=== PATIENT | female | born 1955 | race Caucasian/White ===

== ENCOUNTER 2021-10-18 13:53 | Outpatient (CLI) | payer MEDICARE, MEDICAID, SELFPAY ==
--- NOTE | ~2021-10-18 | DEXA_ITS ---
Bone Density Report Name: LORI RAMON Age: 66 Sex: Female Ethnicity: White Date of : 1955 Indication: postmenopausal; screening for osteoporosis; prior fracture; cancer; asthma or emphysema; Referring Provider: Arnaldo Gutierrez Study: Bone densitometry was performed. Exam Date: October 18, 2021 Accession number: [id number] Bone Density: Region BMD T-score Z-score Classification AP Spine(L2, L3, L4) 1.331 2.3 4.3 Normal Femoral Neck (Left) 0.913 0.6 2.2 Normal Total Hip (Left) 1.091 1.2 2.6 Normal Femoral Neck (Right) 1.007 1.4 3.1 Normal Total Hip (Right) 1.068 1.0 2.4 Normal Femoral Neck Mean 0.960 1.0 2.7 Normal Total Hip Mean 1.079 1.1 2.5 Normal World Health Organization criteria for BMD impression classify patients as: Normal (T-score at or above -1.0), Osteopenia (T-score between -1.0 and -2.5), or Osteoporosis (T-score at or below -2.5). 10-year Fracture Risk: FRAX not reported because: All T-scores for Spine Total, Hip Total, Femoral Neck at or above -1.0 Clinical Information Provided by Patient: Has had a low trauma fracture Has used the following medications: Vitamin D Has the following medical conditions: Asthma or Emphysema, Cancer Patient maximum height was 63 Menopause Age: 49 No regular weight bearing exercise Does not regularly consume dairy products Onset of menses at age 11 Number of children 4 Impression: The patient has normal bone mass. The patient has risk factors, including: previous fracture. Discussion: LOW RISK OF FRACTURE; BONE DENSITY IS WELL ABOVE THE MINIMUM DESIRABLE LEVEL AND ABOVE AVERAGE FOR AGE AND SEX AT ALL SKELETAL SITES TESTED. This person's bone density is above expected limits for age and sex. This is rarely clinically significant, but should be pursued if there are significant musculoskeletal complaints. The patient should follow a healthful lifestyle (good nutrition with adequate calcium and vitamin D, and appropriate weight-bearing exercise). Follow-Up: Consider repeating this study in 5 years or sooner if there is some new clinical indication. Reported by: Dr. Peyman Britton on 10/18/2021 2:52:00 PM. Reviewed, dictated and finalized at location AChris GAINES
--- NOTE | ~2021-10-18 | MM_ITS ---
EXAMINATION: MM screening melony BI w chris HISTORY: Screening mammogram TECHNIQUE: Craniocaudal and mediolateral oblique 3-D tomosynthesis images were obtained and synthetic 2-D images were generated. CAD analysis was submitted and interpreted. COMPARISON: 04/13/2017, 03/2016 bilateral screening mammogram examinations BREAST PARENCHYMAL COMPOSITION: There are scattered areas of fibroglandular density. FINDINGS: Mildly nodular fibroglandular stroma is noted. The largest nodular area is an approximately 5 mm opacity in the inner aspect of the mid to posterior lower inner right breast, not significantly changed since 04/13/2017. There is a 5 mm irregular opacity at mid depth in the outer mid left breast (craniocaudal Tomosynthes is image 19/53; MLO Tomosynthesis image 20/67). Diagnostic left mammogram and left breast ultrasound examination are recommended. Otherwise no suspicious mass, architectural distortion, malignant calcification, skin thickening or r etraction of either breast is noted. IMPRESSION: 1. New 5 mm opacity at mid depth in the outer mid left breast 2. Diagnostic left mammogram and left breast ultrasound examination are recommended BI-RADS Category 0: Incomplete: Needs additional imaging evaluation. Reviewed, dictated and finalized at location A. IMPRESSION: 1. New 5 mm opacity at mid depth in the outer mid left breast 2. Diagnostic left mammogram and left breast ultrasound examination are recomme nded BI-RADS Category 0: Incomplete: Needs additional imaging evaluation.
== END 2021-10-18 13:54 | disposition home or self-care (01) ==
PROVIDERS: PCP Family Medicine; Visit Provider Family Medicine
DX: Z12.31 Encounter for screening mammogram for malignant neoplasm of breast (principal); Z78.0 Asymptomatic menopausal state; Z13.820 Encounter for screening for osteoporosis
CPT/HCPCS: 77063; 77067; 77080

== ENCOUNTER 2021-10-25 08:43 | Outpatient (CLI) | payer MEDICARE, MEDICAID, SELFPAY ==
--- NOTE | ~2021-10-25 | MMUS_ITS ---
EXAMINATION: MM diagnostic melony LT w chris, US breast LT limited HISTORY: Follow-up left breast mass TECHNIQUE: Additional 3-D tomosynthesis images of the left breast were performed and synthetic 2-D im ages were generated. CAD analysis was submitted and interpreted. High resolution Limited left breast ultrasound was performed. COMPARISON: 04/27/2013 BREAST PARENCHYMAL COMPOSITION: Breast composed of scattered areas of fibroglandular density FINDINGS: MAMMOGRAPHIC FINDINGS: There is a persistent mass in the upper outer quadrant of the left breast, middle third, measuring 5- 6 mm. There are multiple left axillary lymph nodes which appear normal. There are benign left breast calcifications. ULTRASOUND: Limited left breast ultrasound: There are mildly prominent ducts at 12 and 2:00. At 2:00, 12 cm from the nipple, there is an irregular shaped partially cystic mass measuring 7 x 5 x 5 mm. No internal va scularity. No significant posterior features. At 2:00, 5 cm from the nipple there is an irregular sha ped hypoechoic mass measuring 6 mm maximum dimension without internal vascularity or posterior featur es. At 3:00, 12 cm from the nipple, there is a cluster of small cysts measuring up to 4 mm. IMPRESSION: 1. Hypoechoic masses of the left breast at 2:00, 12 cm from the nipple and 2:00, 5 cm from the nipple . 2. Ultrasound-guided left breast biopsies recommended. BI-RADS category 4, suspicious findings. Reviewed, dictated and finalized at location A. IMPRESSION: 1. Hypoechoic masses of the left breast at 2:00, 12 cm from the nipple and 2:00 , 5 cm from the nipple. 2. Ultrasound-guided left breast biopsies recommended. BI-RADS category 4, suspicious findings.
== END 2021-10-25 08:44 | disposition home or self-care (01) ==
LOC: CHSIMG 08:46
PROVIDERS: PCP Family Medicine; Visit Provider Family Medicine
DX: R92.8 Other abnormal and inconclusive findings on diagnostic imaging of breast (principal)
CPT/HCPCS: 76642; 77061; 77065; G0279

== ENCOUNTER 2021-11-04 09:03 | Outpatient (CLI) | payer MEDICARE, MEDICAID, SELFPAY ==
--- NOTE | ~2021-11-04 | US_ITS ---
Consultation US DATE: 11/04/2021 10:44 INDICATION: Left breast masses TECHNIQUE: Real-time imaging was repeated at the area of previously mentioned hypoechoic masses 2:00 12 cm from the nipple and 2:00 5 cm from the nipple. COMPARISON: 10/25/2021 Limited left breast ultrasound FINDINGS: The previously reported lesion at 2:00 12 cm from the nipple is no longer identified. 2:00 5 cm from nipple: Parallel circumscribed hypoechoic lesion measuring approximately 3 x 5.2 mm co mpared to 3 x 6 mm on 10/25/2021. There is no posterior shadowing. 3. month targeted left breast ultrasound follow-up examination at 2:00 5 cm from nipple is recommende d. IMPRESSION: BI-RADS Category 3: Probably benign mass at 2:00 5 cm from nipple Recommendation: 3 month left breast targeted ultrasound follow-up at 2:00 Dr. Britton telephoned the report and 3 month follow up ultrasound follow up recommendation on 11/06/20[address] Gutierrez's nurse Grigsby's voicemail. Reviewed, dictated and finalized at Location A. Reviewed, dictated and finalized at location A. IMPRESSION: BI-RADS Category 3: Probably benign mass at 2:00 5 cm from nipple Recommendation: 3 month left breast targeted ultrasound follow-up at 2:00 Dr. Britton telephoned the report and 3 month follow up ultrasound follow up recom mendation on 11/06/2021 at [address] Gutierrez's nurse Grigsby's voicem ail.
== END 2021-11-04 09:04 | disposition home or self-care (01) ==
PROVIDERS: PCP Family Medicine; Visit Provider Family Medicine
DX: N63.20 Unspecified lump in the left breast, unspecified quadrant (principal); R92.8 Other abnormal and inconclusive findings on diagnostic imaging of breast
CPT/HCPCS: 99199

== ENCOUNTER 2022-02-06 08:02 | Outpatient (CLI) | payer MEDICARE, MEDICAID, SELFPAY ==
--- NOTE | ~2022-02-06 | US_ITS ---
US breast LT limited 02/06/2022 08:45 Indication: Follow-up left breast mass Procedure: High-resolution Limited ultrasound of the left breast Comparison: Comparison to multiple prior studies sequentially, with oldest reviewed study dated 11/2021. Findings: At 2:00, 5 cm from the nipple, there is an oval, parallel orientation, nonshadowing mass me asuring 5 x 4 x 3 mm without significant change from prior examination allowing for differences of te chnique. At 12:00, 2 cm from the nipple there is an oval hypoechoic mass measuring 4 x 2 x 4 mm with parallel orientation, no posterior features or internal vascularity, likely benign. Impression: 1: Probable benign left breast masses. BI-RADS CATEGORY 3-PROBABLY BENIGN FINDING RECOMMENDATION: Six-month follow-up bilateral mammogram and Limited left breast ultrasound Reviewed, dictated and finalized at location A. Impression: 1: Probable benign left breast masses. BI-RADS CATEGORY 3-PROBABLY BENIGN FINDING RECOMMENDATION: Six-month follow-up bilateral mammogram and Limited left breast ultrasound
== END 2022-02-06 08:03 | disposition home or self-care (01) ==
LOC: CHSIMG 08:04
PROVIDERS: PCP Family Medicine; Visit Provider Family Medicine
DX: R92.8 Other abnormal and inconclusive findings on diagnostic imaging of breast (principal)
CPT/HCPCS: 76642

== ENCOUNTER 2022-03-11 09:30 | Outpatient (RCR) | payer MEDICARE, MEDICAID, SELFPAY ==
[2022-03-11 09:45] VITALS: BMI 49.6
[2022-03-11 10:27] VITALS: BMI 49.6
== END 2022-05-26 09:31 | disposition home or self-care (01) ==
LOC: ANHDMC 09:30
PROVIDERS: PCP Family Medicine; Visit Provider Family Medicine
DX: E11.40 Type 2 diabetes mellitus with diabetic neuropathy, unspecified (principal); Z71.3 Dietary counseling and surveillance; Z71.89 Other specified counseling
CPT/HCPCS: 97802; G0108

== ENCOUNTER 2022-08-04 09:07 | Outpatient (CLI) | payer MEDICARE, MEDICAID, SELFPAY ==
--- NOTE | ~2022-08-04 | XR_ITS ---
Lumbosacral Spine: AP and lateral views Clinical History: Pain Findings: The normal lordotic curve is maintained. Questionable minimal anterior wedging deformity of L5. The intervertebral disc spaces are preserved. The sacroiliac joints are normally outlined. Impression: Questionable minimal anterior wedging deformity of L5. Reviewed, dictated and finalized at [facility]. EL HEADING INSPECTOR Impression: Questionable minimal anterior wedging deformity of L5.
== END 2022-08-04 09:08 | disposition home or self-care (01) ==
LOC: CHSIMG 09:12
PROVIDERS: PCP Family Medicine; Visit Provider Family Medicine
DX: M54.50 Low back pain, unspecified (principal)
CPT/HCPCS: 72100

== ENCOUNTER 2022-08-18 15:38 | Outpatient (RCR) | payer MEDICARE, MEDICAID, SELFPAY ==
--- NOTE | 2022-08-18 16:45 | PTOPEVAL1 ---
Assessment and note entered by Phyllis Benites DPT Evaluation Information Assessment Status Evaluation Diagnosis impaired gait Onset 08/08/22 Subjective Information Patient reports she would like to improve her walking. She states she is unable to walk without use of rollator. She reports she uses rollator at all times. She reports she also has knee pain that keeps her up at night. She had difficulty with ambulation, standing and completing house hold tasks. She reports she has a ramp into her apartment. She reports she difficulty with getting into her bathtub as well. She lives alone and completes all house hold tasks with increased time . Reported Pain Level Pain Score 6: Self Report Assessment PT Clinical Summary Patient is a 67 year old female who presents to PT with impaired gait. Patient demonstrates decreased B LE strength, decreased balance and decreased enduring impairing her ability to ambulate prolonged distances and stand for house hold tasks. She would benefit from skilled PT to address impairments and return to PLOF. Plan of Care Interventions Electrical Stimulation,Gait Training,Hot Pack/Cold Pack,Manual Therapy,Mechanical Traction,Neuro Re- education,Patient/Caregiver Educati,Therapeutic Activities,Therapeutic Exercise PT Services Indicated Yes Treatment Frequency and 2x weekly for 8 visits Duration These treatments will address the objective and functional deficits as defined above. The patient will be advanced safely and appropriately in order for the patient to progress towards his/her prior level of function. Additional exercises will be introduced and as well as a comprehensive home exercise program upon discharge, if needed, ?to ensure carryover of functional gains achieved in the clinic. This treatment plan has been reviewed and agreement upon by the patient.
== END 2022-08-18 18:38 | disposition home or self-care (01) ==
LOC: CHSPT 15:38
PROVIDERS: PCP Family Medicine; Visit Provider Family Medicine
DX: M54.50 Low back pain, unspecified (principal); R26.9 Unspecified abnormalities of gait and mobility
CPT/HCPCS: 97110; 97161; 97530

== ENCOUNTER 2022-10-31 11:32 | Outpatient (CLI) | payer MEDICARE, MEDICAID, SELFPAY | END 2022-10-31 11:33 | disposition home or self-care (01) | LOC: CHSIMG 11:33 | PROVIDERS: PCP Family Medicine; Visit Provider Family Medicine | DX: Z12.31 Encounter for screening mammogram for malignant neoplasm of breast (principal) | CPT/HCPCS: 99199 ==

== ENCOUNTER 2022-11-07 09:18 | Outpatient (CLI) | payer MEDICARE, MEDICAID, SELFPAY ==
--- NOTE | ~2022-11-07 | MMUS_ITS ---
EXAMINATION: MM diagnostic melony BI w chris, US breast BI limited HISTORY: Six-month follow-up for probably benign left breast masses TECHNIQUE: Craniocaudal, mediolateral, and mediolateral oblique 3-D tomosynthesis images of the lionel ts were performed and synthetic 2-D images were generated. CAD analysis was submitted and interpreted . High resolution limited bilateral breast ultrasound was performed. COMPARISON: 02/06/2022, 10/25/2021, 10/18/2021, 04/13/2017 BREAST PARENCHYMAL COMPOSITION: The breasts are almost entirely fatty. FINDINGS: MAMMOGRAPHIC FINDINGS: Right breast: There is a 4 mm mass in the far posterior third of the inner breast at the 4:00 locatio n, 17 cm from the nipple. Additional smaller right breast masses are stable. Left breast: No suspicious mass, calcification, or architectural distortion are identified to suggest malignancy. There has been no suspicious interval change. ULTRASOUND: Right breast: There is a 5 mm round, hyperechoic mass with no posterior features or internal vascular ity at the 3:00 location, 12 cm from the nipple. Left breast: There is a stable 5 mm oval, circumscribed, parallel, hypoechoic mass with no posterior features or internal vascularity at the 2:00 location, 5 cm from the nipple. Also seen is a stable 4 mm x 2 mm oval, circumscribed, parallel, hypoechoic mass with no posterior features or internal vascu larity at the 12:00 location, 2 cm from the nipple. IMPRESSION: 1. Indeterminate right breast mass. Ultrasound-guided right breast biopsy is recommended. 2. Probably benign left breast masses. Targeted left breast ultrasound six months is recommended. BI-RADS category 4, suspicious findings. Reviewed, dictated and finalized at location A. IMPRESSION: 1. Indeterminate right breast mass. Ultrasound-guided right breast biopsy is re commended. 2. Probably benign left breast masses. Targeted left breast ultrasound six marion hs is recommended. BI-RADS category 4, suspicious findings.
== END 2022-11-07 09:19 | disposition home or self-care (01) ==
LOC: CHSIMG 09:19
PROVIDERS: PCP Family Medicine; Visit Provider Family Medicine
DX: R92.8 Other abnormal and inconclusive findings on diagnostic imaging of breast (principal)
CPT/HCPCS: 76642; 77062; 77066; G0279

== ENCOUNTER 2023-01-05 09:59 | Outpatient (CLI) | payer MEDICARE, MEDICAID, SELFPAY ==
--- NOTE | ~2023-01-05 | MMUS_ITS ---
EXAMINATION: US breast biopsy RT w image, MM post biopsy invasive RT DATE: 01/05/2023 11:33 (accession [id number]), 01/05/2023 11:27 (accession [id number]) INDICATION: Indeterminate right breast mass at 3:00. Ultrasound-guided core biopsy is requested to ev aluate for malignancy. TECHNIQUE AND FINDINGS: The risks and potential benefits of the procedure were discussed with the patient including bleeding and infection. A time out was performed. The skin of the right breast was prepared and draped in usua l sterile fashion. 1% lidocaine was used for superficial anesthesia. 1% lidocaine with epinephrine wa s used for deep anesthesia. A vacuum-assisted biopsy needle was advanced through to the outer edge of the region of interest from an inferior approach utilizing sonographic guidance. A total of seven tissue core samples were obtai benjie through the lesion. A tissue marker clip was then placed at the biopsy site. Hemostasis was achie loc. A sterile bandage was applied. The patient tolerated procedure well and there was no evidence of immediate complication. The patient was given verbal instructions to return to the Emergency Department in the event of severe breast pa in or rapid breast enlargement. A two view right breast mammogram was obtained to document tissue mar ker clip placement. Postbiopsy mammogram demonstrates the tissue marker located in the middle third o f the medial breast approximately 7 cm anterior to the mammographic finding. Given this discordance, the biopsied ultrasound finding did not correlate with the mammographic finding. Because of the far p osterior position of the mammographic finding, stereotactic biopsy would likely be difficult. IMPRESSION: 1. Ultrasound-guided vacuum-assisted biopsy of right breast mass with tissue marker placement. 2. Persistent mammographically detected mass in the far posterior breast, likely in a difficult posit ion for stereotactic biopsy. Recommend short-term right diagnostic mammogram in three months with pos sible ultrasound to evaluate for any interval change. These findings and recommendations were discuss ed with Dr. Arnaldo Gutierrez MD at 1224 hours on 01/07/2023. Reviewed, dictated and finalized at location A. IMPRESSION: 1. Ultrasound-guided vacuum-assisted biopsy of right breast mass with tissue ma rker placement. 2. Persistent mammographically detected mass in the far posterior breast, likel y in a difficult position for stereotactic biopsy. Recommend short-term right d iagnostic mammogram in three months with possible ultrasound to evaluate for an y interval change. These findings and recommendations were discussed with Dr. Shane Gutierrez MD at 1224 hours on 01/07/2023.
== END 2023-01-05 10:00 | disposition home or self-care (01) ==
PROVIDERS: PCP Family Medicine; Visit Provider Family Medicine
DX: N63.15 Unspecified lump in the right breast, overlapping quadrants (principal)
CPT/HCPCS: 19083; 88305; A4648

== ENCOUNTER 2023-04-07 08:50 | Outpatient (CLI) | payer MEDICARE, MEDICAID, SELFPAY ==
--- NOTE | ~2023-04-07 | MMUS_ITS ---
EXAMINATION: MM diagnostic melony RT w chris, US breast RT limited HISTORY: 4 mm mass in far posterior third of inner right breast at 4:00 locations 17 cm from nipple r eported on 11/07/2022 diagnostic craniocaudal view TECHNIQUE: Full field and spot ML, MLO and CC 3-D tomosynthesis images of the right breast were perfo rmed and synthetic 2-D images were generated. CAD analysis was submitted and interpreted. High resolu tion breast ultrasound was performed. COMPARISON: None FINDINGS: MAMMOGRAPHIC FINDINGS: A circumscribed hyperdense 4 mm opacity is confirmed at the very posterior margin of the mammogram in the lower inner quadrant of the right breast. ULTRASOUND: No sonographic correlate for the 4 mm mass at the very posterior lower inner right breast is detected . IMPRESSION: 1. High density 4 mm mass at the very posterior aspect of the lower inner right breast, without sonog raphic correlate 2. Consider MR examination of the right breast with particular attention to the posterior lower inner quadrant; if MR is not performed, at a minimum, 6 month diagnostic right mammogram follow-up is margot mmended. BI-RADS Category 0: Incomplete: Needs additional imaging evaluation. Reviewed, dictated and finalized at location A. IMPRESSION: 1. High density 4 mm mass at the very posterior aspect of the lower inner right breast, without sonographic correlate 2. Consider MR examination of the right breast with particular attention to the posterior lower inner quadrant; if MR is not performed, at a minimum, 6 month diagnostic right mammogram follow-up is recommended. BI-RADS Category 0: Incomplete: Needs additional imaging evaluation.
== END 2023-04-07 08:51 | disposition home or self-care (01) ==
LOC: CHSIMG 08:52
PROVIDERS: PCP Family Medicine; Visit Provider Family Medicine
DX: R92.8 Other abnormal and inconclusive findings on diagnostic imaging of breast (principal)
CPT/HCPCS: 76642; 77061; 77065; G0279

== ENCOUNTER 2023-05-06 08:53 | Outpatient (CLI) | payer MEDICARE, MEDICAID, SELFPAY ==
--- NOTE | ~2023-05-06 | MR_ITS ---
MR breast BI wo/w con 05/11/2023 09:16 JOURNAL ENTRY AUDIT CLERK INDICATION: Follow-up right breast mass seen on prior mammogram TECHNIQUE: MRI of the breasts perform using standard protocol pre-and post IV contrast with the follo wing sequences: Axial T2 STIR, axial T1, axial vibrant T1 with fat suppression precontrast and multip hasic postcontrast. 20 cc of MultiHance administered intravenously. Previous benign right breast biop sy. COMPARISON: Comparison to multiple prior studies sequentially, with oldest reviewed study dated 11/2021. FINDINGS: There are no abnormalities on the precontrast sequences. There is moderate background paren chymal enhancement. In the lower outer quadrant of the right breast at 7:00, middle third there is a 7 x 7 x 5 mm oval circumscribed mass with rapid washout enhancement. There are bilateral intramammary and axillary lymph nodes which retain their normal fatty hilum. There are scattered foci of nonmass- like enhancement in both breasts, likely background enhancement. LEFT BREAST: No signal abnormalities on precontrast sequences. There is moderate background parenchy mal enhancement. No enhancing lesions following contrast administration. No areas of enhancement m eeting threshold criteria on CAD analysis. No evidence of signal abnormalities in the axillary or i nternal mammary node distributions.] IMPRESSION: 1: Right breast: Enhancing 7 mm right breast mass at 7:00, 9.1 cm posterior to the nipple, likely be nign. 2: Left breast: Negative. No evidence of malignancy. BI-RADS category 2. Recommend annual mammogr aphy follow-up. BI-RADS CATEGORY 3-PROBABLY BENIGN FINDING RECOMMENDATION: Six-month follow-up diagnostic bilateral mammogram and possible additional ultrasound recommended. Reviewed, dictated and finalized at location B. NAL ENTRY AUDIT CLERK IMPRESSION: 1: Right breast: Enhancing 7 mm right breast mass at 7:00, 9.1 cm posterior to the nipple, likely benign. 2: Left breast: Negative. No evidence of malignancy. BI-RADS category 2. Re commend annual mammography follow-up. BI-RADS CATEGORY 3-PROBABLY BENIGN FINDING RECOMMENDATION: Six-month follow-up diagnostic bilateral mammogram and possible additional ultrasound recommended.
== END 2023-05-06 08:54 | disposition home or self-care (01) ==
PROVIDERS: PCP Family Medicine; Visit Provider Family Medicine
DX: R92.8 Other abnormal and inconclusive findings on diagnostic imaging of breast (principal)
CPT/HCPCS: 77049; A9577; C8908

== ENCOUNTER 2023-11-13 08:32 | Outpatient (CLI) | payer MEDICARE, MEDICAID, SELFPAY ==
--- NOTE | ~2023-11-13 | MM_ITS ---
EXAMINATION: MM diagnostic melony BI w chris HISTORY: Follow-up right breast mass TECHNIQUE: Additional 3-D tomosynthesis images of the breasts were performed and synthetic 2-D images were generated. CAD analysis was submitted and interpreted. COMPARISON: Comparison to multiple prior studies sequentially, with oldest reviewed study dated 03/17. BREAST PARENCHYMAL COMPOSITION: Not dense: There are scattered areas of fibroglandular density. FINDINGS: The breasts are stable. Stable mass in the lower central right breast, middle third measuri ng 4 mm. No new masses, calcifications or architectural distortion in either breast to suggest malign joey. IMPRESSION: 1. Stable bilateral mammogram without evidence for malignancy. 2. Routine yearly screening mammogram and regular clinical breast examination are recommended. BI-RADS Category 2: Benign finding(s). Reviewed, dictated and finalized at location B. IMPRESSION: 1. Stable bilateral mammogram without evidence for malignancy. 2. Routine yearly screening mammogram and regular clinical breast examination a re recommended. BI-RADS Category 2: Benign finding(s).
== END 2023-11-13 08:33 | disposition home or self-care (01) ==
LOC: CHSIMG 08:34
PROVIDERS: PCP Family Medicine; Visit Provider Family Medicine
DX: R92.8 Other abnormal and inconclusive findings on diagnostic imaging of breast (principal)
CPT/HCPCS: 77062; 77066; G0279

== ENCOUNTER 2024-03-22 10:36 | Outpatient (CLI) | payer MEDICARE, MEDICAID, SELFPAY ==
--- NOTE | ~2024-03-22 | XR_ITS ---
3 VIEWS LUMBAR SPINE Ordering provider: Arnaldo Gutierrez MD History: . Low back pain radiating to bilateral hips . Comparison: August 04, 2022 FINDINGS: VERTEBRAL BODIES: No visible fracture or subluxation. Degenerative changes of the spine. DISK SPACES: Narrowing of the disc L1-L2, L3-L4 and L5-S1. Bilateral sacroiliitis is noted. SOFT TISSUES: Normal. IMPRESSION: No acute osseous abnormality lumbar spine. No significant change from previous examination. Reviewed, dictated and finalized at location A.
--- NOTE | ~2024-03-22 | XR_ITS ---
AP and lateral views of the bilateral hips Clinical history: Pain Findings: No acute fracture or dislocation is seen. Osseous alignment is anatomic. There is minimal d egenerative change of both hip joints. Soft tissues are unremarkable. Impression: Minimal degenerative change of both hip joints. Reviewed, dictated and finalized at location M. Impression: Minimal degenerative change of both hip joints.
== END 2024-03-22 10:37 | disposition home or self-care (01) ==
LOC: CHSIMG 10:40
PROVIDERS: PCP Family Medicine; Visit Provider Family Medicine
DX: M25.559 Pain in unspecified hip (principal); M54.16 Radiculopathy, lumbar region
CPT/HCPCS: 72100; 73521

== ENCOUNTER 2024-11-15 08:21 | Outpatient (CLI) | payer MEDICARE, MEDICAID, SELFPAY ==
--- NOTE | ~2024-11-15 | MM_ITS ---
PROCEDURE: MM SCREENING KARLOS BI W JOEL INDICATION: Asymptomatic, referred for screening mammogram COMPARISON: 10/18/2021 through 04/20/2013 TECHNIQUE: Digital breast tomosynthesis craniocaudal and mediolateral oblique views of Both breasts w ere obtained with computer-aided detection to assist in interpretation of the study. FINDINGS: There are scattered areas of fibroglandular density. No focal dominant mass, architectural distortion, or suspicious microcalcifications are identified. There are no features to suggest malignancy. IMPRESSION: No evidence of malignancy in the breast. Recommend continued screening mammography BI-RADS 1, NEGATIVE Reviewed, dictated and finalized at location B.
--- OUTSIDE RECORDS SUMMARY | 2024-11-15 08:27 | XMS_ITS ---
Author Organization Unknown Address [id number] [place], [place] [id number] Phone Care Team Providers Care Salvage Laborer Name Role Phone MIMI Freedman Attending Unavailable Immunization Immunization Date Status Additional Notes Code Code System pneumococcal polysaccharide PPV23 02/28/2020 Completed 33 CVX Td (adult), 5 Lf tetanus toxoid, preservative free, adsorbed 04/18/2008 Completed 113 CVX Pneumococcal conjugate PCV 13 04/07/2019 Completed 133 CVX Influenza, split virus, trivalent, PF 03/22/2024 Completed 140 CVX Influenza, split virus, trivalent, preservative 04/28/2011 Completed 141 CVX Influenza, split virus, trivalent, preservative 03/24/2012 Completed 141 CVX Influenza, split virus, trivalent, preservative 02/17/2013 Completed 141 CVX Influenza, split virus, trivalent, preservative 05/15/2015 Completed 141 CVX Influenza, split virus, quadrivalent, PF 04/07/2019 Completed 150 CVX Influenza, split virus, quadrivalent, PF 02/28/2020 Completed 150 CVX Influenza, split virus, quadrivalent, PF 04/01/2021 Completed 150 CVX Influenza, split virus, quadrivalent, PF 04/22/2022 Completed 150 CVX Influenza, split virus, quadrivalent, PF 03/13/2023 Completed 150 CVX Influenza, split virus, quadrivalent, preservative 03/05/2017 Completed 158 C VX COVID-19, mRNA, LNP-S, PF, 3 0 mcg/0.3 mL dose 05/27/2021 Completed 208 CVX COVID-19 vaccine, vector-nr, [id number], PF, 0.5 mL 10/16/2020 Completed 212 CVX Pneumococcal conjugate PCV20 , polysaccharide [id number] conjugate, adjuvant, PF 03/13/2023 Completed 216 CVX COVID-19, mRNA, LNP-S, PF, 3 0 mcg/0.3 mL dose, ilene-sucrose 02/05/2022 Completed 217 CVX Social History Type Status Start Date End Date Code Code Syst em Sex Female Hospital Discharge Instructions Should you have any questions prior to discharge, please contact a member of your healthcare team. If you have left the hospital and have any questions, please contact your primary care physician. Reason For Referral No Data Found Plan of Treatment No Data Found Encounters Encounter Diagnosis Start Date Code Code Sys tem Gastro-esophageal reflux disease without esophagitis 0 07/06/2024 SNOMED-CT Personal Care Team Section Performer Name Performer Role Active Date Inactive Da te
--- OUTSIDE RECORDS SUMMARY | 2024-11-15 08:27 | XMS_ITS ---
Author Organization Unknown Address [address] [place], [place] [phone] Phone Care Team Providers Care Disease Control Inspector Name Role Phone YESY ZEV Attending Unavailable Immunization Immunization Date Status Additional [...] 212 CVX Pneumococcal conjugate PCV20 , polysaccharide [id number] conjugate, adjuvant, PF 03/13/2023 Completed 216 CVX [...] Diagnosis Start Date Code Code Sys tem Idiopathic osteoarthritis 04/06/2023 [id number] OMED-CT Personal Care Team Section Performer Name Performer Role Active Date Inactive Da te
--- OUTSIDE RECORDS SUMMARY | 2024-11-15 08:28 | XMS_ITS ---
Author Organization Unknown Address [address] [place], [place] [phone] Phone Care Team Providers Care Shop Mechanic Name Role Phone YESY ZEV Attending Unavailable [...] 212 CVX Pneumococcal conjugate PCV20 , polysaccharide [id number] conjugate, adjuvant, PF 03/13/2023 Completed 216 CVX [...] Date Code Code Sys tem Idiopathic osteoarthritis 05/15/2023 [id number] OMED-CT Personal Care Team Section Performer Name Performer Role Active Date Inactive Da te
--- OUTSIDE RECORDS SUMMARY | 2024-11-15 08:28 | XMS_ITS ---
Author Organization Unknown Address [address] [place], [place] [phone] Phone Care Team Providers Care Composition Roll Maker And Cutter Name Role Phone MIMI Freedman Attending Unavailable [...] 212 CVX Pneumococcal conjugate PCV20 , polysaccharide [id number] conjugate, adjuvant, PF 03/13/2023 Completed 216 CVX [...] tem Gastro-esophageal reflux disease without esophagitis 0 08/19/2024 SNOMED-CT Personal Care Team Section Performer Name Performer Role Active Date Inactive Da te
--- OUTSIDE RECORDS SUMMARY | 2024-11-15 08:28 | XMS_ITS | Clinical Summary ---
Author Organization [facility] Address [address] [place] [address] Care Team Providers Care Research Anthropologist Name Role Phone Arnaldo Gutierrez MD Primary Care Provider [phone] Source Comments [facility],non-owned Affiliates and Associated Physician Practices is amultiple site organization consisting of ambulatory clinics and hospital sitesin [place], [place], [place] and [place]. This disclosure is being madepursuant to the Care Everywhere program and may not contain all information available regarding this patient. Last updated 18.[employer] Allergies No known active allergies Medications * Be aware that medications may not be up to date on this document. Alwaysverify current medications with the patient. albuterol (Proventil;Luciano tolin) (2.5 MG/3ML) 0.083% nebulizer solution Inhale 2.5 (two and one-half) mg by mouth every 4 hours as needed 4 Active albuterol HFA (Proventil; Ventolin; Proair) 108 (90 Base) MCG/ACT inhaler Inhale 2 (two) puffs by mouth every 6 hours as needed 4 Active busPIRone (Buspar) 10 MG tablet Take 1.5 (one and one-half) tablets by mouth 3 times daily 4 Active Continuous Glucose Computer Systems Analyst (FreeStyle [place] 2 [place] Systm) KORTNEY USE DIRECTED TO SCAN THE SENSOR FOR GLUCOSE READINGS. 4 Active Continuous Glucose Sensor (FreeStyle [place] 2 Sensor Systm) MISC PLEASE SEE ATTACHED FOR DETAILED DIRECTIONS 5 Active Jardiance 25 MG tablet Take 1 (one) tablet by mouth once daily 5 Active gabapentin (Neurontin) 400 MG capsule Take 1 (one) capsule by mouth 3 times daily Active lisinopril (Prinivil; Zestril) 20 MG tablet Take 1 (one) tablet by mouth once daily 5 Active oxyBUTYnin CR 24hr (Ditropan-XL) 10 MG tablet Take 1 (one) tablet by mouth 2 times daily Active pravastatin (Pravachol) 20 MG tablet Take 1 (one) tablet by mouth at bedtime 5 Active venlafaxine XR 24hr (Effexor XR) 150 MG capsule Take 1 (one) capsule by mouth once daily 5 Active Trulicity 4.5 MG/0.5ML injection Inject 4.5 (four and one-half) mg subcutaneously every 7 days 5 Active Semglee, yfgn, pen Inject 60 (sixty) Units subcutaneously at bedtime 5 Active HumaLOG KwikPen 100 UNIT/ML pen Inject 15 (fifteen) Units subcutaneously 3 times daily before meals 4 Active omeprazole (PriLOSEC) 40 MG capsule Take 1 (one) capsule by mouth once daily 5 Active Lantus SoloStar pen Inject 60 (sixty) Units subcutaneously every 24 hours 5 Active Active Problems No known active problems Encounters Date Type Department Care Team Description 10/21/2024 2:30 PM CDT Office Visit [facility] [address] [place] [phone] Yamileth Villegas, BASEBALL INSPECTOR AND REPAIRER-FINISHING MACHINE OPERATOR Obesity, Class III, BMI 40-49.9 (morbid obesity) (HCC) (Primary Dx); Gastroesophageal reflux disease, unspecified whether esophagitis present; Primary hypertension; Hypercholesterolemia; Type 2 diabetes mellitus with hyperglycemia, with long-term current use of insulin (HCC); Anxiety and depression; Arthritis; Mild intermittent asthma without complication (HCC); Chronic bronchitis, unspecified chronic bronchitis type (HCC) 09/15/2024 Orders Only [facility] [address] [place] [address] Yamileth Villegas, BASEBALL INSPECTOR AND REPAIRER-FINISHING MACHINE OPERATOR Obesity, Class III, BMI 40-49.9 (morbid obesity) ([facility]) 09/14/2024 Orders Only [facility] [address] [place] [address] Svetlana Villegasmichael BASEBALL INSPECTOR AND REPAIRER-FINISHING MACHINE OPERATOR Obesity, Class III, BMI 40-49.9 (morbid obesity) ([facility]) 09/09/2024 1:00 PM CDT Office Visit [facility] [address] [place] [address] Yamileth Villegas BASEBALL INSPECTOR AND REPAIRER-FINISHING MACHINE OPERATOR Obesity, Class III, BMI 40-49.9 (morbid obesity) (Primary Dx); Gastroesophageal reflux disease, unspecified whether esophagitis present; Primary hypertension; Hypercholesterolemia; Type 2 diabetes mellitus with hyperglycemia, with long-term current use of insulin; Anxiety and depression; Arthritis; Mild intermittent asthma without complication; Chronic bronchitis, unspecified chronic bronchitis type 09/09/2024 Orders Only [facility] [address] [place] [phone] Becky Overton RN from Last 3 Months Family History Medical History Relation Name Comments Diabetes; unknown type Brother Heart Failure Brother Diabetes; unknown type Maternal Grandmother Blood Clots Mother Cancer Mother Diabetes; unknown type Mother Diabetes; unknown type Paternal Grandfather Relation Name Status Comments Brother Maternal Grandmother Mother Paternal Grandfather Social History Tobacco Use Types Packs/Day Years Used Date Smoking Tobacco: Never Smokeless Tobacco: Never Tobacco Cessation:Counseling Given: Not Answered Alcohol Use Standard Drinks/Week Comments Not Currently 0 (1 standard drink = 0.6 oz pur e alcohol) PHQ-2 Answer Date Recorded Patient Health Questionnaire-2 Score 0 10/21/2024 Comments Unknown Sex and Gender Information Value Date Recorded Sex Assigned at Not on file Legal Sex Female 7:07 AM CDT Gender Identity Not on file Sexual Orientation Not on file Last Filed Vital Signs Vital Sign Reading Time Taken Comments Blood Pressure 128/80 10/21/2024 2:00 PM CDT Pulse 88 10/21/2024 2:00 PM CDT Temperature 36.2 C (97.1 F) 10/21/2024 2:00 PM CDT Respiratory Rate 20 10/21/2024 2:00 PM CDT Oxygen Saturation 95% 10/21/2024 2:00 PM CDT Inhaled Oxygen Concentration - - Weight 111.7 kg (246 lb 4.8 oz) 10/21/2024 2:00 PM CDT Height 158.8 cm (5' 2.5) 10/21/2024 2:00 PM CDT Body Mass Index 44.33 10/21/2024 2:00 PM CDT Plan of Treatment Upcoming Encounters Date Type Department Care Team (Late st Contact Info) Description 12/23/2024 1:30 PM CDT Office Visit [facility] [address] [place] [phone] Yamileth Villegas APRN-FINISHING MACHINE OPERATOR [address] [place] [address] Health Maintenance Due Date Last Done Comments BONE DENSITY TESTING 1955 COLOGUARD (AGES 45-75) - COLON CA SCREENING 1954 COLON MONITORING 1954 COLONOSCOPY - COLON CA SCREENING 1954 CT COLONOGRAPHY - COLON CA SCREENING 1954 Colorectal Cancer Screening 1954 FIT - COLON CA SCREENING 1954 FLEX SIG - COLON CA SCREENING 1954 MAMMOGRAM 1954 HEPATITIS C SCREENING 01/21/1972 DTAP/TDAP/TD VACCINES (1 - Tdap) 1973 PNEUMOCOCCAL VACCINE 50+ (1 of 2 - PCV) 1973 ZOSTER VACCINE (1 of 2) 01/26/2004 Respiratory Syncytial Virus (RSV) Vaccine Pt: or over 60 yrs (1 - Risk 60-74 years 1-dose series) 2014 COVID-19 VACCINE ( - season) 2024 02/05/2022, 05/27/2021, 10/16/2020 MEDICARE AWV CALENDAR YEAR 2024 SCREENING FOR DIABETES 09/14/2027 09/13/2024 INFLUENZA VACCINE Completed 03/22/2024, , 04/22/2022, Additional history exists DEPRESSION SCREENING Completed 09/09/2024 HEPATITIS B VACCINE Aged Out No longe r eligible based on patient's age to complete this topic HIB VACCINE Aged Out No longer eligi ble based on patient's age to complete this topic HPV VACCINE Aged Out No longer eligi ble based on patient's age to complete this topic MENINGOCOCCAL (Group B) VACCINE SHARED DECISION-MAKING Aged Out No longer eligible based on patient's age to complete this topic MENINGOCOCCAL GROUPS A/C/Y/W VACCINE Aged Out No longer eligible based on patient's age to complete this topic Procedures Procedure Name Priority Date/Time Associated Diagnosis Comments VITAMIN D 25-HYDROXY Routine 09/13/2024 Obesity, Class III, BMI 40-49.9 (morbid obesity) (HCC) LIPID PROFILE Routine 09/13/2024 Obesity, Class III, BMI 40-49.9 (morbid obesity) ([facility]) IRON + TRANSFERRIN PANEL Routine 09/13/2024 Obesity, Class III, BMI 40-49.9 (morbid obesity) (HCC) CBC W AUTO DIFFERENTIAL Routine 09/13/2024 Obesity, Class III, BMI 40-49.9 (morbid obesity) ([facility]) TSH Routine 09/13/2024 Obesity, Class III, BMI 40-49.9 (morbid obesity) (HCC) COMPREHENSIVE METABOLIC PANEL Routine 09/13/2024 Obesity, Class III, BMI 40-49.9 (morbid obesity) ([facility]) from Last 3 Months Results * VITAMIN D 25-HYDROXY (09/13/2024) Blood BLOOD SPECIMEN / Unknown 09/13/2024 Yamileth Villegas BASEBALL INSPECTOR AND REPAIRER-FINISHING MACHINE OPERATOR LAB - CHEMISTRY ORDERABLES F inal Result OTHER LAB * CBC WITH DIFFERENTIAL (09/13/2024) Blood BLOOD SPECIMEN / Unknown 09/13/2024 [facility] Villegas [facility] LAB - HEMATOLOGY ORDERABLES Edited Result - Final OTHER LAB * COMPREHENSIVE METABOLIC PANEL (09/13/2024) Blood BLOOD SPECIMEN / Unknown 09/13/2024 [facility] Villegas BASEBALL INSPECTOR AND REPAIRER-FINISHING MACHINE OPERATOR LAB - CHEMISTRY ORDERABLES F inal Result OTHER LAB * TSH (09/13/2024) Blood BLOOD SPECIMEN / Unknown 09/13/2024 [facility] Villegas [facility] - [facility]STRY ORDERAB[facility] F inal Result OTHER LAB * IRON + TRANSFERRIN PANEL (09/13/2024) Blood BLOOD SPECIMEN / Unknown [facility] BASEBALL INSPECTOR AND REPAIRER-FINISHING MACHINE OPERATOR LAB - CHEMISTRY ORDERABLES F inal Result OTHER LAB * LIPID PROFILE (09/13/2024) Blood BLOOD SPECIMEN / Unknown 09/13/2024 [facility] Villegas BASEBALL INSPECTOR AND REPAIRER-FINISHING MACHINE OPERATOR LAB - CHEMISTRY ORDERABLES F inal Result OTHER LAB from Last 3 Months Insurance [facility] MA[facility] MEDICARE ADV [facility]NA[facility] MEDICARE [facility] Care Teams Research Anthropologist Relationship Specialty Start Date End Date Arnaldo Gutierrez MD [address] [place] [phone] PCP - General Family Medicine 09/09/24
--- OUTSIDE RECORDS SUMMARY | 2024-11-15 08:28 | XMS_ITS ---
Author Organization Unknown Address [address] [place], [place] [phone] Phone Care Team Providers Care Tool Setter Apprentice Name Role Phone YESY ZEV Attending Unavailable [...] 212 CVX Pneumococcal conjugate PCV20 , polysaccharide [id number] conjugate, adjuvant, PF 03/13/2023 Completed 216 CVX [...] Date Code Code Sys tem Idiopathic osteoarthritis 10/02/2023 [id number] OMED-CT Personal Care Team Section Performer Name Performer Role Active Date Inactive Da te
--- OUTSIDE RECORDS SUMMARY | 2024-11-15 08:28 | XMS_ITS | Referral Summary ---
Author Organization [facility] Address [address] [place] [address] Care Team Providers Care Consumer Safety Officer Name Role Phone Arnaldo Gutierrez MD Primary Care Provide r Allergies No known active allergies Medications No known medications Active Problems No known active problems Social History Tobacco Use Types Packs/Day Years Used Date Smoking Tobacco: Never Smokeless Tobacco: Never Tobacco Cessation:Counseling Given: Not Answered Personal Safety Answer Date Recorded Getting School Help Needed Not on file 08/28 Comments Unknown Sex and Gender Information Value Date Recorded Sex Assigned at Not on file Legal Sex Female 12:59 AM CARD STRIPPER Gender Identity Not on file Sexual Orientation Not on file Last Filed Vital Signs Vital Sign Reading Time Taken Comments Blood Pressure 145/80 03/31/2023 10:11 AM CDT Pulse 84 03/31/2023 10:11 AM CDT Temperature - - Respiratory Rate - - Oxygen Saturation 95% 03/31/2023 10:11 AM CDT Inhaled Oxygen Concentration - - Weight - - Height - - Body Mass Index - - Plan of Treatment Not on file Insurance IDPA [facility] [place]ICARE [place] [address] Care Teams Consumer Safety Officer Relationship Specialty Start Date End Date Arnaldo Gutierrez MD [address] [place] [address] PCP - General Family Medicine 06/24/18
--- OUTSIDE RECORDS SUMMARY | 2024-11-15 08:28 | XMS_ITS | Clinical Summary ---
Author Organization [facility] Address [address] [place] [address] Care Team Providers Care Vb Developer Name Role Phone Arnaldo Gutierrez MD Primary [...] on file Legal Sex Female 12:59 AM LATENT PRINT EXAMINER Gender Identity Not on file Sexual Orientation Not on file Obstetrics History Last Filed Vital Signs Vital Sign Reading Time Taken Comments Blood Pressure 145/80 03/31/2023 10:11 AM CDT Pulse 84 03/31/2023 10:11 AM CDT Temperature - - Respiratory Rate - - Oxygen Saturation 95% 03/31/2023 10:11 AM CDT Inhaled Oxygen Concentration - - Weight - - Height - - Body Mass Index - - Plan of Treatment Health Maintenance Due Date Last Done Comments Breast Cancer Screening-Mammogram 1954 Colon Cancer Screening-Colonoscopy 1954 Depression Screening 1954 Fall Risk Assessment 1954 Hepatitis C Screening 1954 Osteoporosis Screening-Bone Density Scan 1954 Hepatitis B Screening 01/26/1972 Zoster Vaccine (1 of 2) 01/26/2004 DTaP/Tdap/Td Vaccine (1 - Tdap) 04/19/2008 8 Well Visit 65+ 2019 Covid-19 Vaccine (4 - 2023-2 5 season) 2024 02/05/2022, 05/27/2021, 10/16/2020 Influenza Vaccine (Season Ended) 2025 04/22/2022, 04/01/2021, 02/28/2020, Additional history exists Pneumococcal vaccine 65+ Completed 02/28/2020, 03/16 Insurance [facility] MEDICARE ADVANTAGE IDPA Care Teams Vb Developer Relationship Specialty Start Date End Date Arnaldo Gutierrez MD [address] [place] [address] PCP - General Family Medicine 06/24/18
--- OUTSIDE RECORDS SUMMARY | 2024-11-15 08:28 | XMS_ITS ---
Author Organization Unknown Address [address] [place], [place] [phone] Phone Care Team Providers Care Oil Rigger Name Role Phone YESY ZEV Attending Unavailable [...] 212 CVX Pneumococcal conjugate PCV20 , polysaccharide [id number] conjugate, adjuvant, PF 03/13/2023 Completed 216 CVX [...] Diagnosis Start Date Code Code Sys tem Bilateral primary osteoarthritis of knee 04/22/2023 SNOMED-CT Personal Care Team Section Performer Name Performer Role Active Date Inactive Da te
== END 2024-11-15 08:22 | disposition home or self-care (01) ==
LOC: CHSIMG 08:22
PROVIDERS: PCP Family Medicine; Visit Provider Family Medicine
DX: Z12.31 Encounter for screening mammogram for malignant neoplasm of breast (principal)
CPT/HCPCS: 77063; 77067

== ENCOUNTER 2024-11-18 15:09 | Outpatient (CLI) | payer MEDICARE, MEDICAID, SELFPAY ==
--- NOTE | ~2024-11-18 | XR_ITS ---
XR chest 2V 11/18/2024 15:21 Indication: Cough and shortness of breath Procedure: 2 view chest Comparison: 11/17/2017 Findings: Heart size normal. No focal air space disease, pulmonary edema, pleural effusion or suspect ed pneumothorax. Impression: 1: No acute cardiopulmonary disease. Reviewed, dictated and finalized at location A. Impression: 1: No acute cardiopulmonary disease.
--- OUTSIDE RECORDS SUMMARY | 2024-11-18 15:12 | XMS_ITS ---
Author Organization Unknown Address [address] [place], [place] [phone] Phone Care Team Providers Care Sales Product Specialist Name Role Phone YESY BROTHERS Attending Unavailable Immunization Immunization Date Status Additional [...] 212 CVX Pneumococcal conjugate PCV20 , polysaccharide [id number] conjugate, adjuvant, PF 03/13/2023 Completed 216 CVX [...] Code Code Sys tem Idiopathic osteoarthritis 04/06/2023 [id number] OMED-CT Personal Care Team Section Performer Name Performer Role Active Date Inactive Da te
--- OUTSIDE RECORDS SUMMARY | 2024-11-18 15:12 | XMS_ITS ---
Author Organization Unknown Address [address] [place], [place] [phone] Phone Care Team Providers Care Pharmacognosy Teacher Name Role Phone YESY BROTHERS Attending Unavailable [...] 212 CVX Pneumococcal conjugate PCV20 , polysaccharide [id number] conjugate, adjuvant, PF 03/13/2023 Completed 216 CVX [...] Code Code Sys tem Idiopathic osteoarthritis 05/15/2023 [id number] OMED-CT Personal Care Team Section Performer Name Performer Role Active Date Inactive Da te
--- OUTSIDE RECORDS SUMMARY | 2024-11-18 15:12 | XMS_ITS | Clinical Summary ---
Author Organization [facility] Address [address] [place] [address] Care Team Providers Care Customer Training Specialist Name Role Phone Arnaldo Gutierrez MD Primary [...] on file Legal Sex Female 12:59 AM ORACLE R12 DEVELOPER Gender Identity Not on file Sexual Orientation [...] Pneumococcal vaccine 65+ Completed 02/28/2020, 03/16 Insurance [facility] MEDIC[facility] ADVANTAGE [facility] Address: [address] [address] [place] [address] IDPA Care Teams Customer Training Specialist Relationship Specialty Start Date End Date Arnaldo Gutierrez MD [address] [place] [address] PCP - General Family Medicine 06/24/18
--- OUTSIDE RECORDS SUMMARY | 2024-11-18 15:12 | XMS_ITS ---
Author Organization Unknown Address [address] [place], [place] [phone] Phone Care Team Providers Care Wreath And Garland Maker Hand Name Role Phone YESY BROTHERS Attending Unavailable [...] 212 CVX Pneumococcal conjugate PCV20 , polysaccharide [id number] conjugate, adjuvant, PF 03/13/2023 Completed 216 CVX [...] Code Code Sys tem Idiopathic osteoarthritis 10/02/2023 [id number] OMED-CT Personal Care Team Section Performer Name Performer Role Active Date Inactive Da te
--- OUTSIDE RECORDS SUMMARY | 2024-11-18 15:12 | XMS_ITS ---
Author Organization Unknown Address [address] [place], [place] [phone] Phone Care Team Providers Care Transfer And Pumphouse Operator Chief Name Role Phone YESY BROTHERS Attending Unavailable [...] 212 CVX Pneumococcal conjugate PCV20 , polysaccharide [id number] conjugate, adjuvant, PF 03/13/2023 Completed 216 CVX [...]
--- OUTSIDE RECORDS SUMMARY | 2024-11-18 15:12 | XMS_ITS ---
Author Organization Unknown Address [address] [place], [place] [phone] Phone Care Team Providers Care Infantry Indirect Fire Crewmember Name Role Phone MIMI Freedman Attending Unavailable [...] 212 CVX Pneumococcal conjugate PCV20 , polysaccharide [id number] conjugate, adjuvant, PF 03/13/2023 Completed 216 CVX [...]
--- OUTSIDE RECORDS SUMMARY | 2024-11-18 15:12 | XMS_ITS | Referral Summary ---
Author Organization [facility] Address [address] [place] [address] Care Team Providers Care Paperback Machine Operator Name Role Phone Arnaldo Gutierrez MD Primary [...] on file Legal Sex Female 12:59 AM DIRECTOR OF STRATEGIC PROGRAMS Gender Identity Not on file Sexual Orientation [...] of Treatment Not on file Insurance IDPA [facility] MEDICARE ADVANTAGE IDPA Care Teams Paperback Machine Operator Relationship Specialty Start Date End Date Arnaldo Gutierrez MD [address] [place] [address] PCP - General Family Medicine 06/24/18
--- OUTSIDE RECORDS SUMMARY | 2024-11-18 15:13 | XMS_ITS ---
Author Organization Unknown Address [address] [place], [place] [phone] Phone Care Team Providers Care Billing And Quality Technician Name Role Phone MIMI Freedman Attending Unavailable [...] 212 CVX Pneumococcal conjugate PCV20 , polysaccharide [id number] conjugate, adjuvant, PF 03/13/2023 Completed 216 CVX [...]
--- OUTSIDE RECORDS SUMMARY | 2024-11-18 15:13 | XMS_ITS | Clinical Summary ---
Author Organization [facility] [employer] Address [address] [place] [address] Care Team Providers Care Data Reduction Technician Name Role Phone Arnaldo Gutierrez MD Primary Care Provider [phone] Source Comments [facility] [employer],non-owned Affiliates and Associated Physician Practices is amultiple site organization consisting of ambulatory clinics and hospital sitesin [place], [place], [place] and [place]. This disclosure is being madepursuant to the Care Everywhere program and may not contain all information available regarding this patient. Last updated 18.[employer] Allergies No known active allergies Medications * [...] 3 times daily 4 Active Continuous Glucose Director Of Cath Lab ([employer] [place] [address] [place] [employer]) KORTNEY USE DIRECTED TO SCAN THE [...] Description 10/21/2024 2:30 PM CDT Office Visit [facility] [address] [place] [phone] Yamileth Villegas, ASSISTANT FOOTBALL COACH-COLOR CARD MAKER Obesity, Class III, BMI 40-49.9 (morbid obesity) (HCC) (Primary Dx); Gastroesophageal reflux disease, unspecified whether esophagitis present; Primary hypertension; Hypercholesterolemia; Type 2 diabetes mellitus with hyperglycemia, with long-term current use of insulin (HCC); Anxiety and depression; Arthritis; Mild intermittent asthma without complication (HCC); Chronic bronchitis, unspecified chronic bronchitis type (HCC) 09/15/2024 Orders Only [facility] [address] [place] [address] Yamileth Villegas, ASSISTANT FOOTBALL COACH-COLOR CARD MAKER Obesity, Class III, BMI 40-49.9 (morbid obesity) ([facility]) 09/14/2024 Orders Only [facility] [address] [place] [phone] Svetlana Villegasmichael ASSISTANT FOOTBALL COACH-COLOR CARD MAKER Obesity, Class III, BMI 40-49.9 (morbid obesity) ([facility]) 09/09/2024 1:00 PM CDT Office Visit [facility] [address] [place] [address] Yamileth Villegas ASSISTANT FOOTBALL COACH-COLOR CARD MAKER Obesity, Class III, BMI 40-49.9 (morbid obesity) (Primary Dx); Gastroesophageal reflux disease, unspecified whether esophagitis present; Primary hypertension; Hypercholesterolemia; Type 2 diabetes mellitus with hyperglycemia, with long-term current use of insulin; Anxiety and depression; Arthritis; Mild intermittent asthma without complication; Chronic bronchitis, unspecified chronic bronchitis type 09/09/2024 Orders Only [facility] [address] [place] [phone] Becky Overton RN from Last 3 Months [...] Visit [facility] [address] [place] [phone] Yamileth Villegas APRN-COLOR CARD MAKER [address] [place] [address] Health Maintenance Due Date Last Done Comments [...] Obesity, Class III, BMI 40-49.9 (morbid obesity) ([facility]) IRON + TRANSFERRIN PANEL Routine 09/13/2024 Obesity, Class III, BMI 40-49.9 (morbid obesity) (HCC) CBC W AUTO DIFFERENTIAL Routine 09/13/2024 Obesity, Class III, BMI 40-49.9 (morbid obesity) ([facility]) TSH Routine 09/13/2024 Obesity, Class III, BMI 40-49.9 (morbid obesity) (HCC) COMPREHENSIVE METABOLIC PANEL Routine 09/13/2024 Obesity, Class III, BMI 40-49.9 (morbid obesity) ([facility]) from Last 3 Months Results * VITAMIN D 25-HYDROXY (09/13/2024) Blood BLOOD SPECIMEN / Unknown 09/13/2024 Yamileth Villegas ASSISTANT FOOTBALL COACH-COLOR C[employer] MAKER LAB - CHEMISTRY ORDERABLES F inal Result OTHER LAB * CBC WITH DIFFERENTIAL (09/13/2024) Blood BLOOD SPECIMEN / Unknown 09/13/2024 [facility] Villegas [facility] LAB - HEMATOLOGY ORDERABLES Edited Result - Final OTHER LAB * COMPREHENSIVE METABOLIC PANEL (09/13/2024) Blood BLOOD SPECIMEN / Unknown 09/13/2024 [facility] Villegas ASSISTANT FOOTBALL COACH-COLOR CARD MAKER LAB - CHEMISTRY ORDERABLES F inal Result OTHER LAB * TSH (09/13/2024) Blood BLOOD SPECIMEN / Unknown 09/13/2024 [facility] F inal Result OTHER LAB * IRON + TRANSFERRIN PANEL (09/13/2024) Blood BLOOD SPECIMEN / Unknown 09/13/2024 [facility] Vil[facility] ASSISTANT FOOTBALL COACH-COLOR CARD MAKER LAB - CHEMISTRY ORDERABLES F inal Result OTHER LAB * LIPID PROFILE (09/13/2024) Blood BLOOD SPECIMEN / Unknown 09/13/2024 [facility] Villegas ASSISTANT FOOTBALL COACH-[employer] C[employer]ER LAB - CHEMISTRY ORDERABLES F inal Result OTHER LAB from Last 3 Months Insurance [facility] MANAGED MEDICARE ADV [facility] MANAGED MEDICARE [facility] Care Teams Data Reduction Technician Relationship Specialty Start Date End Date Arnaldo Gutierrez MD [address] [place] [id number] PCP - General Family Medicine 09/09/24
== END 2024-11-18 15:10 | disposition home or self-care (01) ==
LOC: CHSIMG 15:10
PROVIDERS: PCP Family Medicine; Visit Provider Family Medicine
DX: R05.9 Cough, unspecified (principal)
CPT/HCPCS: 71046